=== PATIENT | female | born 1990 | race Caucasian/White ===

== ENCOUNTER 2017-12-07 15:37 | Emergency (ER) | payer MEDICAID ==
[~2017-12-07] VITALS: Ht 177.8 cm; Wt 60.0 kg
[~2017-12-07 15:37] MED LIST: CYCL-1 PO; IBUP-1985 PO; VALACYCLOVIR 1 GM
[2017-12-07 16:41] VITALS: BP 132/89
[2017-12-07] MEDS ORDERED: LORA-269 PO (16:57)
[2017-12-07] MEDS ORDERED: IBUP-1984 PO (17:04)
== END 2017-12-07 17:00 | disposition home or self-care (01) ==
LOC: ER 15:38
DX: F15.10 Other stimulant abuse, uncomplicated (principal); Z02.89 Encounter for other administrative examinations; Z91.040 Latex allergy status; Z79.899 Other long term (current) drug therapy
CPT/HCPCS: 99283

== ENCOUNTER 2019-03-13 10:51 | Emergency (ER) | payer MEDICAID ==
[~2019-03-13] VITALS: Ht 160 cm; Wt 68.0 kg
[~2019-03-13 10:51] MED LIST changes: +LORA-269 PO
[2019-03-13 11:00] VITALS: BP 129/86
== END 2019-03-13 11:39 | disposition home or self-care (01) ==
LOC: ER 10:52
DX: F15.10 Other stimulant abuse, uncomplicated (principal); Z98.890 Other specified postprocedural states; Z91.040 Latex allergy status; Z79.899 Other long term (current) drug therapy
CPT/HCPCS: 99281

== ENCOUNTER 2019-10-15 20:35 | Emergency (ER) | payer MEDICAID ==
[~2019-10-15] VITALS: Ht 177.8 cm; Wt 69.5 kg
[2019-10-15 21:16] LABS: BASOPHILS # (AUTO) 0.1 X10'3 (0-0.2); BASOPHILS % (AUTO) 0.5 % (0-1); EOSINOPHILS # (AUTO) 0.2 X10'3 (0-0.9); EOSINOPHILS % (AUTO) 1.3 % (0-6); HEMATOCRIT 40.8 % (35.0-45.0); HEMOGLOBIN 13.9 g/dl (12.0-16.0); LYMPHOCYTES % (AUTO) 22.9 % (21-51); MEAN CORPUSCULAR HEMOGLOBIN 30.9 PG (27.0-31.0); MEAN CORPUSCULAR HGB CONC 34.1 g/dL (33.0-36.5); MEAN CORPUSCULAR VOLUME 90.4 FL (78-98); MONOCYTES # (AUTO) 1.1 X10'3 (0-0.9); MONOCYTES % (AUTO) 8.1 % (2-12); NEUTROPHILS # (AUTO) 8.8 X10'3 (1.8-7.7); NEUTROPHILS % (AUTO) 67.2 % (42-75); PLATELET COUNT 303 X10'3 (140-440); RED BLOOD COUNT 4.51 X10'6 (4.20-5.60); RED CELL DISTRIBUTION WIDTH 13.1 % (11.5-14.5); WHITE BLOOD COUNT 13.1 X10'3 (4.5-11.0)
[2019-10-15 21:38] LABS: ALANINE AMINOTRANSFERASE 21 U/L (12-78); ALBUMIN/GLOBULIN RATIO 1.2 (1.1-1.5); ALKALINE PHOSPHATASE 80 IU/L (46-116); ANION GAP 8 (8-16); ASPARTATE AMINO TRANSFERASE 15 U/L (10-37); BILIRUBIN,TOTAL 0.3 MG/DL (0.1-1.0); BLOOD UREA NITROGEN 14 MG/DL (7-18); BUN/CREATININE RATIO 18.2 (6.6-38.0); CALCIUM 8.7 MG/DL (8.5-10.1); CHLORIDE 105 MMOL/L (99-107); CREATININE 0.77 MG/DL (0.40-0.90); GLUCOSE 90 MG/DL (70-104); LIPASE 166 U/L (73-393); POTASSIUM 3.7 MMOL/L (3.5-5.1); SODIUM 140 MMOL/L (135-145); TOTAL CARBON DIOXIDE 26.7 MMOL/L (24-32); TOTAL PROTEIN 7.4 G/DL (6.4-8.2); eGFR 89 ML/MIN
[2019-10-15 21:47] LABS: URINE HCG NEGATIVE (NEG)
[2019-10-15 21:54] LABS: CLARITY,URINE CLOUDY (Clear); COLOR,URINE YELLOW (Yellow); GLUCOSE, URINE NEGATIVE (Neg); KETONES,URINE NEGATIVE (Neg); LEUKOCYTE ESTERASE ,URINE SMALL (Neg); NITRITES, URINE NEGATIVE (Neg); OCCULT BLOOD,URINE MODERATE (Neg); PROTEIN,URINE NEGATIVE (Neg)
[2019-10-15 22:03] LABS: UA COLLECTION TYPE CLN CATCH MIDSTREAM
[2019-10-15 22:04] LABS: AMORPHOUS PHOSPHATES 1+; BACTERIA,URINE FEW /HPF (Neg); SQUAMOUS EPITHELIAL CELL,UR FEW /LPF (FEW); WBC,URINE 0-4 /HPF (0-4)
[2019-10-15] MEDS ORDERED: glycopyrrolate 0.2mg/ml inj IV ONE (22:10)
[2019-10-15] MEDS ORDERED: LORazepam 2 mg/ml vial IV ONE (22:10)
[2019-10-15] MEDS ORDERED: ketorolac trometh. 30mg/ml inj. IV ONE (22:10)
--- NOTE | 2019-10-15 22:24 | NUR ---
CT TO TAKE PT TO CT . PT REQUESTING TO GO TO CT IN " A LITTLE BIT , I JUST GOT MEDICATED " ADVISED PT THAT CT WILL BE BACK SHORTLY TO TAKE PT TO CT .
[2019-10-15] MEDS ORDERED: lactulose 20gm/30ml cup PO ONE (23:30)
[2019-10-15] MEDS ORDERED: normal saline 1000ML IV soln IVB ONE (23:35)
[2019-10-15] MEDS ORDERED: magnesium hydroxide 30ml (MOM) UD suspension PO ONE (23:35)
[2019-10-16] MEDS ORDERED: POLY17PO10 PO (00:23)
[2019-10-16 00:51] VITALS: BP 112/66
== END 2019-10-16 00:54 | disposition home or self-care (01) ==
LOC: ER 20:36
DX: K59.00 Constipation, unspecified (principal); R10.31 Right lower quadrant pain; F15.90 Other stimulant use, unspecified, uncomplicated; Z87.01 Personal history of pneumonia (recurrent); Z90.89 Acquired absence of other organs; Z72.89 Other problems related to lifestyle; Z79.899 Other long term (current) drug therapy
CPT/HCPCS: 36415; 74176; 80053; 81001; 81025; 83690; 84145; 85025; 87088; 96374; 96375; 99284; J1885; J2060; J7030; J3490

== ENCOUNTER 2019-11-06 20:58 | Emergency (ER) | payer MEDICAID ==
[~2019-11-06] VITALS: Ht 177.8 cm; Wt 158.0 kg
[~2019-11-06 20:58] MED LIST changes: +POLY17PO10 PO
[2019-11-06 21:35] LABS: BASOPHILS # (AUTO) 0.1 X10'3 (0-0.2); BASOPHILS % (AUTO) 0.6 % (0-1); EOSINOPHILS # (AUTO) 0.1 X10'3 (0-0.9); EOSINOPHILS % (AUTO) 0.9 % (0-6); HEMOGLOBIN 12.9 g/dl (12.0-16.0); LYMPHOCYTES # (AUTO) 2.5 X10'3 (1.1-4.8); LYMPHOCYTES % (AUTO) 29.4 % (21-51); MEAN CORPUSCULAR HEMOGLOBIN 30.5 PG (27.0-31.0); MEAN CORPUSCULAR VOLUME 89.7 FL (78-98); MEAN PLATELET VOLUME 8.6 FL (7.4-10.4); MONOCYTES # (AUTO) 0.9 X10'3 (0-0.9); MONOCYTES % (AUTO) 10.2 % (2-12); NEUTROPHILS # (AUTO) 4.9 X10'3 (1.8-7.7); NEUTROPHILS % (AUTO) 58.9 % (42-75); PLATELET COUNT 337 X10'3 (140-440); RED BLOOD COUNT 4.23 X10'6 (4.20-5.60); RED CELL DISTRIBUTION WIDTH 13.3 % (11.5-14.5); WHITE BLOOD COUNT 8.4 X10'3 (4.5-11.0)
[2019-11-06 21:44] LABS: ALANINE AMINOTRANSFERASE 24 U/L (12-78); ALBUMIN/GLOBULIN RATIO 1.3 (1.1-1.5); ALKALINE PHOSPHATASE 66 IU/L (46-116); ANION GAP 12 (8-16); ASPARTATE AMINO TRANSFERASE 20 U/L (10-37); BILIRUBIN,TOTAL 0.6 MG/DL (0.1-1.0); BLOOD UREA NITROGEN 16 MG/DL (7-18); BUN/CREATININE RATIO 23.5 (6.6-38.0); CALCIUM 8.8 MG/DL (8.5-10.1); CHLORIDE 105 MMOL/L (99-107); CREATININE 0.68 MG/DL (0.40-0.90); GLUCOSE 93 MG/DL (70-104); LIPASE 91 U/L (73-393); POTASSIUM 3.1 MMOL/L (3.5-5.1); SODIUM 141 MMOL/L (135-145); TOTAL CARBON DIOXIDE 23.7 MMOL/L (24-32); TOTAL PROTEIN 7.2 G/DL (6.4-8.2); eGFR > 90 ML/MIN
[2019-11-06] MEDS ORDERED: potassium Cl 20 mEq SR tablet PO STA (22:01)
[2019-11-06 22:31] LABS: HCG SERUM QL NEGATIVE
[2019-11-07] MEDS ORDERED: ketorolac tromethamine 15mg/ml inj. IM ONE (00:10)
[2019-11-07 01:26] VITALS: BP 126/67
== END 2019-11-07 02:41 | disposition home or self-care (01) ==
LOC: ER 20:58
DX: R10.30 Lower abdominal pain, unspecified (principal); N83.201 Unspecified ovarian cyst, right side; F15.90 Other stimulant use, unspecified, uncomplicated; Z72.89 Other problems related to lifestyle; Z90.89 Acquired absence of other organs; Z79.899 Other long term (current) drug therapy
CPT/HCPCS: 36415; 74176; 76856; 80053; 83690; 84703; 85025; 96372; 99285; J1885